=== PATIENT | female | born 1970 | race African-American/Black ===

== ENCOUNTER 2016-11-05 13:10 | Emergency (ER) | payer OTHER ==
[~2016-11-05 13:10] MED LIST: BENTYL10 MG PO; FLONASE 0.05% N16 G1; KCL PO; LIBRIUM PO; LORTAB 5-325 M1 EACH PO; NO MEDICATIONS; PHENERGAN25 M1 PO; PRINIVIL10 MG PO; SEROQUEL PO; VICODIN PO
== END 2016-11-05 14:55 ==
LOC: CED 13:10
DX: S01.352A Open bite of left ear, initial encounter (principal); S31.159A Open bite of abdominal wall, unspecified quadrant without penetration into peritoneal cavity, initial encounter; I10 Essential (primary) hypertension; Z23 Encounter for immunization; Y04.1XXA Assault by human bite, initial encounter; Y92.89 Other specified places as the place of occurrence of the external cause
CPT/HCPCS: 90471; 90715; 96365; 99285

== ENCOUNTER 2016-11-16 15:07 | Emergency (ER) | payer OTHER ==
--- NOTE | ~2016-11-16 | CR206 ---
[facility] A Service of [facility] & [facility] RADIOLOGY TEXT RESULTS PATIENT: RAYMOND VALLADARES LOCATION: [facility] : 66 UNIT #: [id number] AGE: [address]: Ike Morrell MD SEX: F ORDER DR: [id number] [facility] [address] [place], [place] [address] [id number] E MR#: [id number] Acc #: [id number] NAME: RAYMOND VALLADARES. : 1970 SEX: F STUDY DATE/TIME: 11/16/2016 14:16 UNIT: [facility] ROOM: STUDY DESCRIPTION: CR Pelvis 1 or 2 Views Attending Physician: Ike Morrell M.D. Ordering Physician: Ike Morrell M.D. Primary Care Physician: Primary Care Physician No MEDICAL IMAGING REPORT This report is preliminary unless electronic signature is present EXAM AP pelvis HISTORY Pelvic pain. The patient has pain starting today. COMPARISON 04/26/2016 FINDINGS An AP view of the pelvis was obtained. The bones are normal. The SI joints are normal except for mild sclerosis around the joints. There is no fracture. IMPRESSION Negative AP pelvis. Dictated by... Ángel Lizarraga M.D. THIS IS AN ELECTRONICALLY VERIFIED REPORT Ángel Lizarraga M.D. at 11/16/2016 3:48 PM Luann TD: 11/16/2016 15:12 JOB #: [id number] MEDICAL IMAGING REPORT Page 1 of 1 COPY
== END 2016-11-16 15:43 | disposition home or self-care (01) ==
LOC: CED 15:07
DX: R10.2 Pelvic and perineal pain (principal); Z48.02 Encounter for removal of sutures; I10 Essential (primary) hypertension; F31.9 Bipolar disorder, unspecified; F17.200 Nicotine dependence, unspecified, uncomplicated; F20.9 Schizophrenia, unspecified
CPT/HCPCS: 72170; 99283

== ENCOUNTER 2017-02-12 05:36 | Emergency (ER) | payer OTHER ==
--- NOTE | ~2017-02-12 | CR72 ---
[facility] A Service of [facility] & [facility] RADIOLOGY TEXT RESULTS PATIENT: RAYMOND VALLADARES LOCATION: [facility] : 66 UNIT #: [id number] AGE: [address]: Govind Crockett MD SEX: F ORDER DR: [id number] [facility] [address] [place], [place] [address] [id number] E MR#: [id number] Acc #: [id number] NAME: RAYMOND VALLADARES. : 1970 SEX: F STUDY DATE/TIME: 02/12/2017 6:36 UNIT: [facility] ROOM: STUDY DESCRIPTION: CR Chest Single View Portable Attending Physician: Govind Crockett M.D. Ordering Physician: Govind Crockett M.D. Primary Care Physician: No Primary Care Physician MEDICAL IMAGING REPORT This report is preliminary unless electronic signature is present EXAM Portable chest 02/12/2017 INDICATION Left arm and leg pain with dizziness and chest pain for the last 2 days. History of hypertension. FINDINGS AP portable views of the chest compared with 05/02/2016. Cardiac and mediastinal contours are within normal limits. The lungs are clear. There is no pneumothorax. IMPRESSION No active disease. Dictated by... Weston James Jr., M.D. THIS IS AN ELECTRONICALLY VERIFIED REPORT Weston James Jr., M.D. at 02/12/2017 4:42 PM FRANCESCA/beena TD: 02/12/2017 13:02 JOB #: [id number] MEDICAL IMAGING REPORT Page 1 of 1 COPY
--- NOTE | ~2017-02-12 | EKG ---
PATIENT: RAYMOND VALLADARES UNIT #: [id number] Ventricular Rate: 55 BPM Atrial Rate: 55 BPM P-R Interval: 148 ms QRS Duration: 90 ms Q-T Interval: 470 ms QTC Calculation(Bezet): 449 ms P [place]: 47 degrees Calculated R [place]: 28 degrees Calculated T [place]: -2 degrees Diagnosis Line: Sinus bradycardia Diagnosis Line: Otherwise normal ECG Diagnosis Line: When compared with ECG of 23-OCT-2015 04:30, Diagnosis Line: No significant change was found Diagnosis Line: Confirmed by DAVID ALFRED MD ([id number]) on Diagnosis Line: 02/12/2017 8:56:48 AM INTERPRETING MD: AUBRIE CASTANEDA
--- NOTE | ~2017-02-12 | CR229 ---
[facility] A Service of [facility] RADIOLOGY TEXT RESULTS PATIENT: RAYMOND VALLADARES LOCATION: [facility] : 66 UNIT #: [id number] AGE: [address]: Goivnd Crockett MD SEX: F ORDER DR: [id number] [facility] [address] [place], [place] [address] [id number] E MR#: [id number] Acc #: [id number] NAME: RAYMOND VALLADARES. : 1970 SEX: F STUDY DATE/TIME: 02/12/2017 7:16 UNIT: [facility] ROOM: STUDY DESCRIPTION: CR Shoulder Min 2 View Lt Attending Physician: Govind Crockett M.D. Ordering Physician: Govind Crockett M.D. Primary Care Physician: No Primary Care Physician MEDICAL IMAGING REPORT This report is preliminary unless electronic signature is present EXAM Left shoulder 3 views HISTORY Shoulder pain since yesterday. FINDINGS 3 view of the left shoulder demonstrates mild AC joint arthropathy. No fracture or dislocation. Soft tissues and visualized left thorax appear normal. IMPRESSION Mild AC joint arthropathy. No acute findings. Dictated by... Oseas Henao M.D. THIS IS AN ELECTRONICALLY VERIFIED REPORT Oseas Henao M.D. at 02/13/2017 10:13 AM ROSANA/andrew TD: 02/12/2017 08:46 JOB #: [id number] MEDICAL IMAGING REPORT Page 1 of 1 COPY
[2017-02-12 06:29] LABS: BASOPHIL% 0.3 % (0-2.5); DIFF IND NO; EOSINOPHIL# 0.2 X10e3 (0-0.7); EOSINOPHIL% 2.5 % (0.0-7.0); HEMATOCRIT 38.3 % (35.0-45.0); HEMOGLOBIN 12.9 gm/dL (12.0-16.0); LYMPHOCYTE# 2.6 X10e3 (1.0-3.5); LYMPHOCYTE% 34.4 % (17.0-45.0); MEAN CELL VOLUME 99.4 FL (83-96); MEAN CORPUSCULAR HEMOGLOBIN 33.6 PG (28-34); MEAN CORPUSCULAR HGB CONC 33.8 g/dL (30-36); MEAN PLATELET VOLUME 8.1 FL (6.5-11.5); MONOCYTE% 13.1 % (3.0-12.0); NEUTROPHIL# 3.8 X10e3 (1.5-7.1); NEUTROPHIL% 49.7 % (40-75); PLATELET COUNT 198 X10e3 (140-420); RED BLOOD COUNT 3.86 X10e (3.90-5.30); RED CELL DISTRIBUTION WIDTH 18.1 % (11.0-15.5); WHITE BLOOD COUNT 7.7 X10e3 (4.0-10.5)
[2017-02-12 07:00] LABS: ALBUMIN SERUM 3.5 g/dL (3.5-5.0); ALKALINE PHOSPHATASE 102 U/L (32-92); ALT (SGPT) 23 U/L (10-40); AST (SGOT) 47 U/L (10-42); BILIRUBIN, DIRECT 0.2 mg/dL (0.0-0.2); BILIRUBIN,INDIRECT 0.6 mg/dL (0.0-0.9); BILIRUBIN,TOTAL 0.8 mg/dL (0.2-2.0); BLOOD UREA NITROGEN 7 mg/dL (9-23); CALCIUM SERUM 8.7 mg/dL (8.4-10.2); CARBON DIOXIDE 24 mmol/L (22-31); CHLORIDE 104 mmol/L (100-111); CREATININE SERUM 0.7 mg/dL (0.6-1.4); GLOM FILT RATE Estimated 118.7 mL/min (>60); GLUCOSE FASTING 85 mg/dL (70-110); POTASSIUM 3.5 mmol/L (3.5-5.1); SODIUM 136 mmol/L (135-145)
[2017-02-12 07:01] LABS: ALCOHOL BLOOD <5 mg/dL (0)
[2017-02-12 07:07] LABS: POC - CKMB <1.0 ng/mL (0.0-7.9); POC - TROPONIN <0.05 ng/mL (<=0.05)
[2017-02-12 07:32] LABS: URINE SOURCE CLEAN CATCH
[2017-02-12 07:37] LABS: URINE APPEARANCE CLOUDY; URINE BILIRUBIN NEG (NEG); URINE BLOOD 2+ (NEG); URINE COLOR YELLOW; URINE GLUCOSE NEG (NEG); URINE KETONE NEG (NEG); URINE LEUKOCYTE ESTERASE 1+ (NEG); URINE NITRATE NEG (NEG); URINE PROTEIN NEG (NEG); URINE SPECIFIC GRAVITY 1.016 (1.003-1.035); URINE UROBILINOGEN 0.2 MG/DL (NEG)
[2017-02-12 07:39] LABS: CULTURE INDICATED? YES; URINE BACTERIA AUWI 1+ (NEGATIVE); URINE SQUAMOUS EPITHELIAL CELL FEW /[HPF]
[2017-02-12 07:50] LABS: URINE MUCUS PRESENT; URINE TRICHOMONAS PRESENT
[2017-02-12 08:01] LABS: AMPHETAMINE NEG (NEG); BARBITURATES NEG (NEG); BENZODIAZEPINES NEG (NEG); COCAINE POS (NEG); MARIJUANA POS (NEG); OPIATES NEG (NEG); TRICYCLIC ANTIDEPRESSANTS NEG (NEG); U METHADONE NEG (NEG)
[2017-02-12 09:03] LABS: POC - CKMB 1.1 ng/mL (0.0-7.9); POC - TROPONIN <0.05 ng/mL (<=0.05)
== END 2017-02-12 09:42 | disposition home or self-care (01) ==
LOC: CED 05:36
PROVIDERS: Emergency Medicine
DX: M25.512 Pain in left shoulder (principal); M79.605 Pain in left leg; F14.10 Cocaine abuse, uncomplicated; A59.9 Trichomoniasis, unspecified; F31.9 Bipolar disorder, unspecified; F17.210 Nicotine dependence, cigarettes, uncomplicated
CPT/HCPCS: 36415; 71010; 73030; 80048; 80076; 80307; 81003; 82550; 82553; 82947; 84484; 85025; 87086; 93005; 96361; 96374; 99284; G0480; J1885